=== PATIENT | female | born 1980 | race Caucasian/White ===

== ENCOUNTER 2021-09-07 10:51 | Emergency (ER) | payer OTHER, SELFPAY ==
[2021-09-07 11:05] VITALS: BP 125/86; PULSE 112; RESP 18; TEMP 37.1; O2SAT 99
--- NOTE | 2021-09-07 11:06 | ED.GENADULT ---
HPI - General Adult General Chief complaint: Upper Respiratory Infection Stated complaint: Sore Throat Source: patient Mode of arrival: ambulatory Limitations: no limitations History of Present Illness HPI narrative: Patient is a 41-year-old female who presents to the [facility] via POV for evaluation of a sore throat that began approximately 2 days ago. She is concerned she has strep throat prompting today's visit. She also reports fever with a maximum temperature of 100.7. Additionally, she reports a stomach bug tues and wed that has since resolved. She is taking Tums and Tylenol for symptoms. She also reports postnasal drip, erythema, and tonsillar swelling. Denies known exposure to sick contacts. Related Data Allergies Allergy/AdvReac Type Severity Reaction Status Date / Time No Known Allergies Allergy Verified 09/07/21 10:57 Review of Systems Review of Systems: Denies sweats, chills, change in appetite, poor p.o. intake, ear pain, sinus pain, drooling, difficulty swallowing, voice changes, chest pain, shortness of breath, heart palpitations PMFSH Comments I have reviewed and agree with the patient's past medical, surgical, social, and family hx as documented by the RN. There is no relevant family history pertinent to the presenting complaint. Exam Narrative: GENERAL: Well-appearing, well-nourished, and in no acute distress. HEAD: Normocephalic, atraumatic. No sinus tenderness or facial swelling appreciated. EYES: PERRLA and EOMI. No evidence of erythema, swelling, or drainage. ENT: Bilateral external ears and ear canals normal. Bilateral TMs are normal.No TM perforation. Nares clear, no rhinorrhea or epistaxis. Bilateral turbinates without erythema/ swelling. Mucous membranes moist and pink. Uvula is midline without erythema and swelling. Marked erythema, moderate swelling, and moderate exudate noted to bilateral tonsils. No evidence of peritonsillar abscess, tenting, or drooling. Breath odor and voice normal. NECK: Supple. No nuchal rigidity appreciated. Bilateral submandibular lymphadenopathy appreciated. CHEST: Bilateral lung bell are clear to auscultation. No respiratory distress. No evidence of cough or pleuritic cp upon examination. HEART: Tachycardia with a rate of 112. Regular rhythm. No murmur, gallop, or rub heard. EXTREMITIES: Normal range of motion. No edema. SKIN: Warm, dry, no rash. NEURO: No focal deficits. Alert and oriented x3. . Course Course Level of Care: Express Care Visit Vital Signs Vital signs: Reviewed Medical Decision Making Differential Diagnosis Differential Diagnosis: Allergic rhinitis, ABRS, acute viral sinusitis, strep pharyngitis, nasopharyngitis, bronchitis, pneumonia, AOM, otitis externa, viral URI, influenza, covid-19 Medical Records Medical records reviewed: Yes I reviewed the external patient's medical records. Lab Data Lab results reviewed: Yes I reviewed the patient's lab results. Lab results narrative: Rapid strep negative. Critical Care Time Critical Care Time Critical Care Time: No Discharge Plan Discharge Clinical Impression: Pharyngitis Qualifiers: Pharyngitis/tonsillitis etiology: unspecified etiology Qualified Code(s): J02.9 - Acute pharyngitis, unspecified Patient Disposition: Home, Self-Care Condition: Stable Instructions: Antibiotic Form, Strep Throat (ED) Additional Instructions: --See discharge instructions for detailed information. --You tested negative for strep a today although you will be prescribed an antibiotic since your exam findings and symptoms are consistent with this infection. --If you received prescription medication today be sure to take all prescription medication only as prescribed. --You may take [id number] Tylenol/ibuprofen as needed for pain, swelling, or fever control. Take only as directed per packaging label. --If you have been prescribed prednisone, DO NOT take [id number] anti-infl
== END 2021-09-07 11:30 | disposition home or self-care (01) ==
PROVIDERS: Emergency Provider Nurse Practitioner Family
DX: J02.9 Acute pharyngitis, unspecified (principal)
CPT/HCPCS: 87081; 87880; 99213; G0463

== ENCOUNTER 2021-10-02 15:53 | Emergency (ER) | payer OTHER, SELFPAY ==
--- NOTE | 2021-10-02 15:56 | ED.DENTAL ---
HPI - Dental/Oral General Chief complaint: Dental/Oral Stated complaint: Lt Tooth Pain Time Seen by Provider: 10/02/21 16:03 Mode of arrival: ambulatory Limitations: no limitations History of Present Illness HPI Narrative: 41-year-old female presents with concern for left upper dental pain. Reports 2-day history of pain. Reports she has had gums with her teeth for quite some time, reports the teeth on the upper left-hand side are ground down to the gum. Reports she has had trouble getting into a dentist because of her insurance. She denies any [id number] intervention. She denies difficulty swallowing, fever, headache. MD Complaint: tooth pain Related Data Home Medications Medication Instructions Recorded Confirmed levonorgestrel 20 mcg/24 hours (7 See Rx Instructions .Route .COMPLEX 09/07/21 10/02/21 yrs) 52 mg intrauterine device (Mirena) Allergies Allergy/AdvReac Type Severity Reaction Status Date / Time No Known Allergies Allergy Verified 10/02/21 16:04 Review of Systems Review of Systems: CONSTITUTIONAL: Denies malaise, chills, sweats, or fever. EYES: Denies visual changes ENT: Denies rhinorrhea, congestion, sinus pain, otalgia or sore throat. Reports left upper dental pain CARDIOVASCULAR: Denies chest pain, palpitations RESPIRATORY: Denies cough or dyspnea. SKIN: Denies rash or itching. MUSCULOSKELETAL: Denies myalgia. NEUROLOGIC: Denies numbness, weakness, or headache. All systems reviewed & are unremarkable except as noted in HPI and below PMFSH Comments At time of signature, agree with nursing past medical, surgical, social and family history. There is no relevant family history pertinent to the presenting complaint Exam Narrative: GENERAL: Well-appearing, well-nourished, and in no acute distress. HEAD: Normocephalic, atraumatic. EYES: PERRLA, sclera clear ENT: Nares clear, turbinates pink, no rhinorrhea or epistaxis. Mucous membranes moist. TM pearly baumann with sharp light reflex bilaterally; no tragal tenderness. Oropharynx without erythema or lesions. Tonsils not enlarged and without exudate. Missing teeth, broken teeth, caries, teeth 13, 14, 15, 16 are worn down to the gum. No periapical abscess noted NECK: Supple. No lymphadenopathy. CHEST: No respiratory distress. Speaks in full sentences. HEART: Regular rate and rhythm. SKIN: Warm, dry, no visible rash. NEURO: Alert and oriented x3. PSYCH: Normal mood and affect Course Course Emergency Course: Patient is aware of diagnosis, understands and agrees to treatment plan. Anticipatory guidance given. Patient agrees to follow-up as directed and is aware of reasons to seek care at the emergency department. Portions of this record may have been created with voice recognition software Level of Care: Express Care Visit Vital Signs Vital signs: Reviewed. MDM - Dental/Oral MDM Narrative Medical decision making narrative: Patients pain and complaint coupled with physical findings are consistant with dentalgia. There are no focal signs of space occupying lesions that are compromising to the airway; no dysphagia, odynophagia, dysphonia, or dyspnea. No uvular deviation or soft palate edema. Patient is non-toxic appearing. The floor of the mouth is soft with no signs of Marlon's Angina; no induration below mandible, no neck pain. Patient is without trismus or drooling and able to swallow secretions. Patient is felt appropriate for discharge home with dental follow up. Differential Diagnosis Differential diagnosis: Likely gingival abscess, dental caries, toothache, dental abscess, fracture of tooth and aphthous ulcer Critical Care Time Critical Care Time Critical Care Time: No Discharge Plan Discharge Clinical Impression: Toothache Patient Disposition: Home, Self-Care Condition: Stable Instructions: Toothache (ED) Additional Instructions: Take antibiotic as directed Avoid temperature extremes May apply heat or
[2021-10-02 16:00] VITALS: BP 133/79; PULSE 88; RESP 18; TEMP 36.5; O2SAT 100
== END 2021-10-02 16:15 | disposition home or self-care (01) ==
PROVIDERS: Emergency Provider Nurse Practitioner
DX: K08.89 Other specified disorders of teeth and supporting structures (principal); F17.200 Nicotine dependence, unspecified, uncomplicated
CPT/HCPCS: 99213; G0463

== ENCOUNTER 2021-12-09 10:09 | Emergency (ER) | payer OTHER, SELFPAY ==
[2021-12-09 10:22] VITALS: BP 130/84; PULSE 99; RESP 18; TEMP 36.8; O2SAT 99
--- NOTE | 2021-12-09 10:30 | ED.GENADULT ---
HPI - General Adult General Chief complaint: Dental/Oral Stated complaint: toothache History of Present Illness HPI narrative: Patient is a 41-year-old female who presents to the [facility] via POV for evaluation of upper left dental pain that has been present for approximately 2 days. Additionally, she reports pain is constant and achy in nature. She also reports swelling, warmth, and redness. She states she has poor dentition. Prescription ibuprofen provides moderate relief. Last dental infection was 3 months ago. She was prescribed Augmentin and ibuprofen 800 at that time. She is waiting to call a dentist after her insurance becomes effective in 1.5 months. Related Data Home Medications Medication Instructions Recorded Confirmed levonorgestrel 20 mcg/24 hours (7 See Rx Instructions .Route .COMPLEX 09/07/21 12/09/21 yrs) 52 mg intrauterine device (Mirena) Allergies Allergy/AdvReac Type Severity Reaction Status Date / Time No Known Allergies Allergy Verified 12/09/21 10:30 Review of Systems Review of Systems: Denies abscess and drug use. Pertinent negatives fever, chills, sweats, poor p.o. intake, change in appetite, recent weight loss, malaise, headache, dizziness, skin color changes, lymphadenopathy, ear pain/drainage, nasal drainage/congestion, hearing loss, tinnitus, vertigo, facial swelling,swollen/tender gums, inability to swallow, drooling, sore throat, nausea, vomiting, sob, chest pain, and heart palpitations/murmurs. PMFSH Comments I have reviewed and agree with the patient's past medical, surgical, social, and family hx as documented by the RN. There is no relevant family history pertinent to the presenting complaint. Exam Narrative: GENERAL: Well-appearing, well-nourished, and in no acute distress. HEAD: Normocephalic, atraumatic. No sinus tenderness or facial swelling. NECK: Supple. No lymphadenopathy or nuchal rigidity. CHEST: Lung sounds are clear to auscultation in bilateral lung bell. No respiratory distress. No evidence of cough upon examination. HEART: Regular rate and rhythm. No murmurs, gallops, or rubs heard. Normal peripheral pulses. Eyes: PERRLA and EOMI. Bilateral conjunctiva with erythema. Normal sclera, eyelids, and eyelashes. Periorbital areas without swelling, erythema, and warmth. No drainage appreciated. ENT: Ears: TMs pearly pina. No bulging, erythema, or fluid appreciated. External auditory canals are Nose: Nares clear, no rhinorrhea or epistaxis. No swelling or erythema. Throat/Mouth: No evidence of swelling, erythema, exudate, peritonsillar mass, lesions, ulcers or drooling. Uvula is midline and without erythema and swelling. Mucous membranes moist. Voice and breath odor normal. Moderate swelling and erythema to gums surrounding tooth #14-16. Moderate diffuse dental carries and fractured teeth. EXTREMITIES: Normal range of motion. No edema. SKIN: Warm, dry, no rash. No skin color changes. Excellent turgor. NEURO: No focal deficits. Alert and oriented x3. Course Course Level of Care: Express Care Visit Vital Signs Vital signs: Vital Signs Temperature 98.2 F 12/09/21 10:22 Pulse Rate 99 12/09/21 10:22 Respiratory Rate 18 12/09/21 10:22 Blood Pressure 130/84 12/09/21 10:22 Pulse Oximetry 99 12/09/21 10:22 Oxygen Delivery Room Air 12/09/21 10:22 Temperature 98.2 F 12/09/21 10:22 Pulse Rate 99 12/09/21 10:22 Respiratory Rate 18 12/09/21 10:22 Blood Pressure 130/84 12/09/21 10:22 Pulse Oximetry 99 12/09/21 10:22 Oxygen Delivery Room Air 12/09/21 10:22 Medical Decision Making Differential Diagnosis Differential Diagnosis: Dental caries, dental abscess, gingivitis Vital Signs Vital Signs: Vital Signs Temperature 98.2 F 12/09/21 10:22 Pulse Rate 99 12/09/21 10:22 Respiratory Rate 18 12/09/21 10:22 Blood Pressure 130/84 12/09/21 10:22 Pulse Oximetry 99 12/09/21 10:22 Oxygen Delivery Room A
== END 2021-12-09 10:43 | disposition home or self-care (01) ==
PROVIDERS: Emergency Provider Nurse Practitioner Family
DX: K04.7 Periapical abscess without sinus (principal); R12 Heartburn; F17.200 Nicotine dependence, unspecified, uncomplicated
CPT/HCPCS: 99213; G0463

== ENCOUNTER 2022-01-12 10:21 | Emergency (ER) | payer OTHER, SELFPAY ==
[2022-01-12 10:38] VITALS: BP 128/79; PULSE 95; RESP 18; TEMP 36.6; O2SAT 100
--- NOTE | 2022-01-12 11:01 | ED.DENTAL ---
HPI - Dental/Oral General Chief complaint: Dental/Oral Stated complaint: Lt Facial Swelling Time Seen by Provider: 01/12/22 11:02 History of Present Illness HPI Narrative: Luz Elena Gerber is a 41 yo female is here with no PMH [facility] dental pain and swelling. Her face is gotten progressively more swollen the last day or 2 and she has a dental appointment on 920 but the pressure is increased as well as a swelling in her mouth she tried to contact her PCP who could not get her in until Friday Related Data Home Medications Medication Instructions Recorded Confirmed levonorgestrel 20 mcg/24 hours (7 See Rx Instructions .Route .COMPLEX 09/07/21 01/12/22 yrs) 52 mg intrauterine device (Mirena) Allergies Allergy/AdvReac Type Severity Reaction Status Date / Time No Known Allergies Allergy Verified 01/12/22 11:01 Review of Systems Review of Systems: CONSTITUTIONAL: Denies fever, chills, sweats. EYES: Denies visual changes, redness, discharge. ENT: Denies rhinorrhea, congestion, sore throat, otalgia. She has an abscess in her left upper mouth that is causing swelling of her cheek CARDIOVASCULAR: Denies chest pain, palpitations, edema. RESPIRATORY: Denies dyspnea, wheezing, cough GASTROINTESTINAL: Denies abdominal pain, nausea, vomiting, diarrhea. GENITOURINARY: Denies dysuria, hematuria, abnormal discharge SKIN: Denies rash or itching. NEUROLOGIC: Denies numbness, or focal weakness. PSYCHIATRIC: Denies anxiety or depression. [facility] Social History Social History (Updated 01/12/22 @ 11:11 by Justine Pace CNP) Smoking packs per day: 0.5 Smoking cigarettes per day: 10.0 Smoking status: Current every day smoker Tobacco type: cigarettes Alcohol intake: current Comments At time of signature, I agree with nursing past medical, surgical, social and family history. There is no relevant family history pertinent to the presenting complaint. Exam Narrative: GENERAL: This is a well-nourished, well-developed patient, in mild distress. HEAD: normocephalic, atraumatic. EYES: . Sclera clear/white. Vision is grossly intact. EARS: External ears normal, auditory canals clear and without drainage, TMs normal without perforation. Hearing grossly intact. NOSE: External nose normal without nasal discharge, nares without redness, no rhinorrhea. THROAT: Mucous membranes moist, swelling to left cheek she has 2 teeth that are cracked and 1 area of gum that is red and swollen with a bump on the upper gum, tender NECK: Neck supple, non-tender CARDIOVASCULAR: Regular rate and rhythm without murmurs, gallops, or rubs. RESPIRATORY: Clear to auscultation. Breath sounds equal bilaterally. No wheezes, rales, or rhonchi. GASTROINTESTINAL: Not done SKIN: warm, intact with no suspicious lesions or rash, good texture and turgor. NEURO: awake, alert, and oriented to person, place and time. There were no obvious focal neurologic abnormalities. Steady gait EXTREMITIES: Normal range of motion. BACK: Nontender without deformity Course Course Emergency Course: Patient treated for abscess to tooth has a dental appointment on 01/22 Started on amoxicillin, prednisone and ibuprofen 800 mg Level of Care: Express Care Visit Vital Signs Vital signs: Vital Signs Temperature 97.9 F 01/12/22 10:38 Pulse Rate 95 01/12/22 10:38 Respiratory Rate 18 01/12/22 10:38 Blood Pressure 128/79 01/12/22 10:38 Pulse Oximetry 100 01/12/22 10:38 Oxygen Delivery Room Air 01/12/22 10:38 Temperature 97.9 F 01/12/22 10:38 Pulse Rate 95 01/12/22 10:38 Respiratory Rate 18 01/12/22 10:38 Blood Pressure 128/79 01/12/22 10:38 Pulse Oximetry 100 01/12/22 10:38 Oxygen Delivery Room Air 01/12/22 10:38 MDM - Dental/Oral Differential Diagnosis Differential diagnosis: Likely gingival abscess, dental caries, toothache, dental abscess, fracture of tooth and other Critical Care Time Critica
== END 2022-01-12 11:20 | disposition home or self-care (01) ==
PROVIDERS: Emergency Provider Nurse Practitioner; PCP Nurse Practitioner Family
DX: K04.7 Periapical abscess without sinus (principal); F17.210 Nicotine dependence, cigarettes, uncomplicated
CPT/HCPCS: 99213; G0463

== ENCOUNTER 2024-05-08 10:26 | Emergency (ER) | payer SELFPAY ==
[2024-05-08 10:45] VITALS: BP 137/85; PULSE 94; RESP 18; TEMP 36.4; O2SAT 99
--- NOTE | 2024-05-08 10:51 | ED_ITS ---
HPI - URI/Sore Throat General Chief Complaint: Upper Respiratory Infection Stated Complaint: Cough Time Seen by Provider: 05/08/24 10:55 Source: patient Mode of arrival: ambulatory Limitations: no limitations History of Present Illness HPI Narrative: Luz Elena is a 44-year-old female patient presenting to the clinic today with complaints of a 2 day history of a productive cough. She reports she is bringing up some like color yellow and clear phlegm. She is a current smoker. No history of COPD or asthma. Denies any shortness of breath or chest pain but states last night she coughs a lot and felt a rattling in her chest. Denies any fevers, chills, or body aches. MD elicited complaint: cough and other Related Data Home Medications ?Medication ?Instructions ?Recorded ?Confirmed ?Last Taken ?Type levonorgestrel (Mirena) See Rx Instructions .Route .COMPLEX 09/07/21 08/20/23 Unknown History Allergies Allergy/AdvReac Type Severity Reaction Status Date / Time No Known Allergies Allergy Verified 05/08/24 10:55 Review of Systems Review of Systems: Pertinent positives per HPI. Patient denies any fever, chills, rash, headache, visual changes, dizziness, shortness of breath, chest pain, palpitations, nausea, vomiting, diarrhea, constipation, abdominal pain, or any urinary issues. [facility] Past Medical History Medical History Obese Tobacco use Surgical History Surgical History (Updated 08/20/23 @ 14:32 by Roseann Sellers CMA) No history of previous surgery Family History Family History (Updated 08/20/23 @ 14:33 by Roseann Sellers CMA) Father Heart disease Social History Social History (Updated 08/20/23 @ 14:33 by Roseann Sellers CMA) Smoking packs per day: 0.5 Smoking cigarettes per day: 10.0 Smoking status: Current every day smoker Tobacco type: cigarettes Alcohol intake: current Substance use: never Do You Feel Safe in your Home?: Yes Lack of Transportation: No Lack of Food: Never True Current Housing: I Have Housing Concerned About Future Housing: No Difficulty Paying Gas/Electric Bills: No Difficulty Paying for Meds: No Currently Unemployed: No Education: Don't Know Difficulty w/ Childcare or Family Care: No Living arrangements: alone Occupation/Education: occupation 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 There is no relevant family history pertinent to the patient complaint. Exam Narrative: General: Well-developed, obese, in no apparent distress Head: Normocephalic, atraumatic Eyes: Pupils equally round and reactive to light bilaterally, EOM intact, sclera and conjunctive clear, no discharge, lids normal Ears: TMs intact and clear, ear canals clear, no drainage, grossly hearing normal. Nose: Nares patent, clear nasal discharge, no inflammation, no sinus tenderness. Mouth: Oral pharynx without lesions or masses, good dentition, MMM. Neck: Supple, trachea midline, no enlargement of anterior or posterior cervical nodes, no thyroid masses or goiter palpable. Cardio: Regular rate and rhythm, s1 and s2 normal, no murmur appreciated. Resp: Expiratory wheezing, no rhonchi, rales, or rubs Course Course Emergency Course: Portions of this record may have been created with voice recognition software. Level of Care: Express Care Visit Vital Signs Vital signs: Vital Signs Temperature 36.4 C 05/08/24 10:45 Pulse Rate 94 05/08/24 10:45 Respiratory Rate 18 05/08/24 10:45 Blood Pressure 137/85 05/08/24 10:45 Pulse Oximetry 99 05/08/24 10:45 Oxygen Delivery Room Air 05/08/24 10:45 Temperature 36.4 C 05/08/24 10:45 Pulse Rate 94 05/08/24 10:45 Respiratory Rate 18 05/08/24 10:45 Blood Pressure 137/85 05/08/24 10:45 Pulse Oximetry 99 05/08/24 10:45 Oxygen Delivery Room Air 05/08/24 10:45 Vital signs reviewed MDM - URI/Sore Throat MDM Narrative Medical decision making narrative: At the time of visit patient is resting comfortably on the exam table. Patient appears to be nontoxic. Plan: I suspect patient has acute bronchitis. Prescription for prednisone and albuterol inhaler was sent to the pharmacy. Supportive measures were discussed with the patient and they voiced understanding discharge instructions and agrees to treatment plan. Return precautions reviewed Differential Diagnosis Differential diagnosis: Likely upper respiratory infection, otitis media, sinusitis, viral infection, bronchitis, influenza, pharyngitis and other (COVID) Discharge Plan Discharge Clinical Impression: Bronchitis Patient Disposition: Home, Self-Care Condition: Stable Instructions: Antibiotic Form, Acute Bronchitis (ED) Additional Instructions: Take prescription medications only as prescribed-albuterol inhaler and prednisone Increase fluids and stay well hydrated Tylenol/motrin for pain/fever Flonase and OTC antihistamines as directed Vicks vapor rub to open sinuses Sinus rinses for congestion Cepacol spray, cough drops, throat lozenges, warm tea with honey/lemon, gargle salt water to soothe throat BRAT diet for diarrhea Clear liquids x 24 hours then advance as tolerated for nausea/vomiting Go to the ED if you develop a worsening in your condition- high fever not controlled by Tylenol or Motrin, dehydration, weakness, lethargy, shortness of breath, or chest pain. Follow up with your PCP in 3-5 days if symptoms persist. Patient Language: Jordanian Prescriptions: New prednisone 20 mg tablet 40 mg PO DAILY 5 Days Qty: 10 0RF albuterol sulfate 90 mcg/actuation HFA aerosol inhaler 2 puff inhalation Q4-6H PRN (Reason: shortness of breath or wheezing) 30 Days Qty: 8.5 0RF No Action Mirena 20 mcg/24 hours (7 yrs) 52 mg Intrauterine Device See Rx Instructions .ROUTE .COMPLEX Rx Instructions: 20 mcg intrauterinely Follow-up/Referrals: Neris Robert APRN [Primary Care Provider] - Time of Disposition: 10:59 Quality NIHSS Nursing Documentation ED NIHSS nursing documentation: reviewed/agree
--- OUTSIDE RECORDS SUMMARY | 2024-05-15 14:22 | XMS_ITS | Encounter Summary ---
Author Organization [facility] Address [address] [place] [address]. [place] [address] [place] [address] Care Team Providers Care Fabric Normalizer Name Role Phone Unavailable Primary Care Provider Unavailabl e Encounter Details Date Type Department Care Team (Late st Contact Info) Description 12/24/2016 Abstract [facility] Family & Internal Medicine [facility] [address] [place] [address] Altagracia Escalante NP Social History Tobacco Use Types Packs/Day Years Used Date Smoking Tobacco: Never Assessed Comments Unknown Sex and Gender Information Value Date Recorded Sex Assigned at Not on file Legal Sex Female 7:05 PM CDT Gender Identity Not on file Sexual Orientation Not on file documented as of this encounter Last Filed Vital Signs Vital Sign Reading Time Taken Comments Blood Pressure 126/64 12/24/2016 2:45 PM CDT Pulse 95 12/24/2016 2:45 PM CDT Temperature - - Respiratory Rate - - Oxygen Saturation - - Inhaled Oxygen Concentration - - Weight 77.7 kg (171 lb 4 oz) 12/24/2016 2:45 PM CDT Height 162.6 cm (5' 4 ) 12/24/2016 2:45 PM CDT Body Mass Index 29.39 12/24/2016 2:45 PM CDT documented in this encounter Progress Notes * Altagracia Escalante NP - 12/24/2016 2:40 PM CDT Reason For Visit Acute Visit Chief Complaint Acute visit for note to be off work today, had food poisoning yesterday after eating [employer](mother also ate same thing and was sick(diarrhea, puked, and stomach cramping), started feeling better late morning; and now her work is needing a note to be off work just today. Review of Systems Eyes, ENT, Cardiovascular, Respiratory, Genitourinary, Musculoskeletal, Integumentary, Neurological, Psychiatric, Endocrine and Hematologic review of systems normal except as noted. Constitutional: feeling poorly. Gastrointestinal: abdominal pain and diarrhea. Active Problems 1. Heartburn (787.1) (R12) 2. Normal routine physical examination (V70.0) (Z00.00) 3. Screening for tuberculosis (V74.1) (Z11.1) Surgical History 1. Denied: History of Surgery Family History Father 1. Family history of diabetes mellitus (V18.0) (Z83.3) Social History ?? Denied: History of Alcohol use ?? Current every day smoker (305.1) (F17.200) ?? Daily caffeine consumption, 2-3 servings a day ?? Single Immunizations PPD --- Series1: [id number] Current Meds 1. RaNITidine HCl - 150 MG Oral Capsule; Therapy: 24Dec2016 to Recorded 2. Hydrocodone-Acetaminophen 7.5-325 MG Oral Tablet; TK 1 T PO Q 6 H P; Therapy: 30Jul2016 to Recorded 3. Ketorolac Tromethamine 10 MG Oral Tablet; TK ONE T PO EVERY SIX HOURS PRN FOR MODERATE PAIN; Therapy: 05Jul2016 to Recorded 4. Ondansetron 4 MG Oral Tablet Disintegrating; DIS ONE T ON THE TONGUE Q 8 H PRN NV; Therapy: 30Jul2016 to Recorded 5. Tamsulosin HCl - 0.4 MG Oral Capsule; TK ONE C PO QD 30 MINUTES AFTER SAME MEAL EACH DAY; Therapy: 30Jul2016 to Recorded Allergies 1. No Known Drug Allergies Vitals Recorded: 24Dec2016 02:45PM Heart Rate 95 Respiration 18 Systolic 126 Diastolic 64 O2 Saturation 98 Height 5 ft 4 in Weight 171 lb 4 oz BMI Calculated 29.4 BSA Calculated 1.83 Physical Exam Constitutional General appearance: Abnormal. acutely ill and appears tired, but well developed, well nourished andhealthy appearing. Eyes Conjunctiva and lids: No swelling, erythema or discharge. Ears, Nose, Mouth, and Throat External inspection of ears and nose: Normal. Otoscopic examination: Tympanic membranes translucent with normal light reflex. Canals patent without erythema. Oropharynx: Normal with no erythema, edema, exudate or lesions. Pulmonary Respiratory effort: No increased work of breathing or signs of respiratory distress. Auscultation of lungs: Clear to auscultation. Cardiovascular Palpation of heart: Normal PMI, no thrills. Auscultation of heart: Normal rate and rhythm, normal S1 and S2, without murmurs. Examination of extremities for edema and/or varicosities: Normal. Abdomen Abdomen: Abnormal. The abdomen was flat. Bowel sounds were normal. The abdomen was soft. no masses palpated. The abdomen was normal to percussion. no CVA tenderness Liver and spleen: No hepatomegaly or splenomegaly. Lymphatic Palpation of lymph nodes in neck: No lymphadenopathy. Musculoskeletal Gait and station: Normal. Digits and nails: Normal without clubbing or cyanosis. Inspection/palpation of joints, bones, and muscles: Normal. Skin Skin and subcutaneous tissue: Normal without rashes or lesions. Neurologic Cranial nerves: Cranial nerves 2-12 intact. Reflexes: 2+ and symmetric. Sensation: No sensory loss. Psychiatric Orientation to person, place, and time: Normal. Mood and affect: Normal. Assessment 1. Acute diarrhea (787.91) (R19.7) 2. Nausea and vomiting (787.01) (R11.2) Plan Pt has improved symptoms but needed return to work note May return tomorrow. Feeling better and acute diarrhea and nausea and vomiting. Signatures Electronically signed by : Altagracia Escalante NP; Dec 24 2016 3:19PM INDIGO VAT TENDER CLOTH (Author) * Altagracia Escalante NP - 12/24/2016 2:40 PM CDT To whom it may concern, Please excuse Luz Elena from work on 12/24/16, she was sick and seen in our office today. If you have any questions please feel free to call our office. Thank you, Altagracia Escalante CLINICAL NURSE OCCUPATIONAL MEDICINE Electronically signed by:Rosangela Denson Dec 24 2016 3:17PM INDIGO VAT TENDER CLOTH documented in this encounter Plan of Treatment Not on file documented as of this encounter Visit Diagnoses Not on filedocumented in this encounter
--- OUTSIDE RECORDS SUMMARY | 2024-05-15 14:22 | XMS_ITS | Encounter Summary ---
Author Organization [facility] Address [address] [place] [address]. [place] [address] [place] [address] Care Team Providers Care Exploration Manager Name Role Phone Unavailable Primary Care Provider Unavailabl e Encounter Details Date Type Department Care Team (Late st Contact Info) Description 02/09/2016 Abstract [facility] Family & Internal Medicine [facility] [address] [place] [address] Parvez Herrera NP Social History Tobacco Use Types Packs/Day Years Used Date Smoking Tobacco: Never Assessed Comments Unknown Sex and Gender Information Value Date Recorded Sex Assigned at Not on file Legal Sex Female 7:05 PM CDT Gender Identity Not on file Sexual Orientation Not on file documented as of this encounter Last Filed Vital Signs Vital Sign Reading Time Taken Comments Blood Pressure 128/60 02/09/2016 8:02 AM CDT Pulse 97 02/09/2016 8:02 AM CDT Temperature - - Respiratory Rate - - Oxygen Saturation - - Inhaled Oxygen Concentration - - Weight 79.8 kg (176 lb) 02/09/2016 8:02 AM CDT Height 162.6 cm (5' 4 ) 02/09/2016 8:02 AM CDT Body Mass Index 30.21 02/09/2016 8:02 AM CDT documented in this encounter Progress Notes * Parvez Herrera NP - 02/09/2016 8:00 AM CDT Reason For Visit Health Neighborhood Planner Complaint 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 General Health: The patient's health since the last visit is described as good. She does not have regular dental visits. She denies vision problems. She denies hearing loss. Immunizations status: up to date. Lifestyle:. She consumes a diverse and healthy diet. She has weight concerns. She does not exerciseregularly. She uses tobacco. She denies alcohol use. Reproductive health: the patient is premenopausal. 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 does not have an immunization record with her but states she is UTD. does not usually get a flu shot. last tetanus 4 years ago with injury so doubt has pertussis coverage. Review of Systems Constitutional: negative. Eyes: negative. ENT: negative. Cardiovascular: negative. Respiratory: negative. Gastrointestinal: negative. Genitourinary: negative. Musculoskeletal: negative. Integumentary negative. Psychiatric: negative. Neurological Negative. Surgical History 1. Denied: History of Surgery Family History 1. Family history of diabetes mellitus (V18.0) (Z83.3) Social History ?? Denied: History of Alcohol use ?? Current every day smoker (305.1) (F17.200) ?? Daily caffeine consumption, 2-3 servings a day ?? Single Current Meds 1. No Reported Medications Recorded 2. PriLOSEC OTC 20 MG Oral Tablet Delayed Release; TAKE 1 TABLET DAILY; Therapy: 09Feb2016 to Recorded Allergies 1. No Known Drug Allergies Vitals Signs [Data Includes: Current Encounter] Heart Rate: 97 Blood Pressure: 60 mm Hg O2 Saturation: 98 Height: 5 ft 4 in Weight: 176 lb BMI Calculated: 30.21 kg/m2 BSA Calculated: 1.85 m2 Blood Pressure: 128 mm Hg Physical Exam Constitutional General appearance: No acute distress, well appearing and well nourished. patient was observed to be mildly obese, but well developed and well nourished. Eyes Conjunctiva and lids: No swelling, erythema or discharge. Pupils and irises: Equal, round, reactive to light. Ears, Nose, Mouth, and Throat External inspection of ears and nose: Normal. Otoscopic examination: Tympanic membranes translucent with normal light reflex. Canals patent without erythema. Nasal mucosa, septum, and turbinates: Normal without edema or erythema. Lips, teeth, and gums: Abnormal. Oropharynx: Normal with no erythema, edema, exudate or lesions. Neck Neck: Supple, symmetric, trachea midline, no masses. Thyroid: Normal, no thyromegaly. Pulmonary Respiratory effort: No increased work of breathing or signs of respiratory distress. Auscultation of lungs: Clear to auscultation. Cardiovascular Auscultation of heart: Normal rate and rhythm, normal S1 and S2, no murmurs. Pedal pulses: 2+ bilaterally. Examination of extremities for edema and/or varicosities: Normal. Abdomen Abdomen: Non-tender, no masses. Examination for hernias: No hernia appreciated. Lymphatic Palpation of lymph nodes in neck: No lymphadenopathy. Musculoskeletal Gait and station: Normal. Digits and nails: Normal without clubbing or cyanosis. Joints, bones, and muscles: Normal. Range of motion: Normal. Stability: Normal. Muscle strength/tone: Normal. Skin Skin and subcutaneous tissue: Normal without rashes or lesions. Neurologic Cranial nerves: Cranial nerves II-XII intact. Psychiatric Recent and remote memory: Intact. Mood and affect: Normal. Assessment 1. Normal routine physical examination (V70.0) (Z00.00) 2. Screening for tuberculosis (V74.1) (Z11.1)1 1 Amended By: Parvez Herrera; Feb 09 2016 8:43 AM LAUNDRY HOUSEKEEPER Plan Normal routine physical examination 1. Always use a seat belt and shoulder strap when riding or driving a motor vehicle.; Status:Complete; Done: 09Feb2016 2. Begin or continue regular aerobic exercise. Gradually work up to at least 3 sessions of 30 minutes of exercise a week.; Status:Complete; Done: 09Feb2016 3. Eat a normal well-balanced diet.; Status:Complete; Done: 09Feb2016 4. Limit your use of alcohol to 2 drinks or cans of beer a day.; Status:Complete; Done: 09Feb2016 5. Schedule an appointment in 48-72 hours to have your TB (tuberculin) skin test interpreted by a trained healthcare provider.; Status:Complete; Done: 09Feb2016 6. Some eating tips that can help you lose weight.; Status:Complete; Done: 09Feb2016 7. We recommend routine visits to a dentist.; Status:Complete; Done: 09Feb2016 8. We recommend that you bring your body mass index down to 25.; Status:Complete; Done: 09Feb2016 Screening for tuberculosis 9. *TB Skin Test Reading In Office; Status:Hold For - Specimen/Data Collection; Requested for:[id number]; 10. Administered: PPD discussed Tdap and influenza vaccines which are declined today come back in Friday for TB test to be read good handwashing to prevent spread of germs f/u prn Signatures Electronically signed by : Parvez Herrera NP; Feb 09 2016 8:42AM LAUNDRY HOUSEKEEPER (Author) Electronically signed by : Parvez Herrera NP; Feb 09 2016 8:44AM LAUNDRY HOUSEKEEPER (Author) documented in this encounter Plan of Treatment Not on file documented as of this encounter Procedures Procedure Name Priority Date/Time Associated Diagnosis Comments TB INTRADERMAL TEST(LAB PERFORMED) Routine 02/12/2016 8:36 AM CDT documented in this encounter Results * TB INTRADERMAL TEST(LAB PERFORMED) (02/12/2016 8:36 AM CDT) TB SKIN TST 2ND STEP Negative [facility] TO EPIC CONVERSION COMMENT 0.0 mm [facility] T O EPIC CONVERSION TB SKIN TST 2ND STEP None [facility] TO EPIC CONVERSION COMMENT maw [facility] T O EPIC CONVERSION 02/12/2016 8:36 AM CDT 02/12/2016 8:36 AM CDT Narrative [facility] TO EPIC CONVERSION - 02/12/2016 8:36 AM CDT Result Communication: No patient communication needed at this time us Parvez Herrera NP MICROBIOLOGY - GENERAL ORDERAB LES Final Result [facility] TO EPIC CONVERSION documented in this encounter Visit Diagnoses Not on filedocumented in this encounter
--- OUTSIDE RECORDS SUMMARY | 2024-05-15 14:22 | XMS_ITS | Encounter Summary ---
Author Organization [facility] Address [address] [place] [address]. [place] [address] [place] [address] Care Team Providers Care Store Merchandiser Name Role Phone Unavailable Primary Care Provider Unavailabl e Encounter Details Date Type Department Care Team (Late st Contact Info) Description 04/09/2018 Abstract [facility] [address] [place] [address] Liliana Conde, FABIOLA [address] [place] [address] Social History Tobacco Use Types Packs/Day Years Used Date Smoking Tobacco: Never Assessed Comments Unknown Sex and Gender Information Value Date Recorded Sex Assigned at Not on file Legal Sex Female 7:05 PM CDT Gender Identity Not on file Sexual Orientation Not on file documented as of this encounter Plan of Treatment Not on file documented as of this encounter Visit Diagnoses Diagnosis Strain of muscle, fascia and tendon at neck level, initial encounter documented in this encounter
--- OUTSIDE RECORDS SUMMARY | 2024-05-15 14:22 | XMS_ITS | Encounter Summary ---
Author Organization [facility] Address [address] [place] [address]. [place] [address] [place] [address] Care Team Providers Care Safe And Vault Mechanic Name Role Phone Unavailable Primary Care Provider Unavailabl e Reason for Visit * Reason Comments Report (SCAN) MOTOR VEHICLE CRASH Encounter Details Date Type Department Care Team (Late st Contact Info) Description 04/09/2018 Scan HEALTH INFO [facility] Scanned, Documents Report (SCAN) (MOTOR VEHICLE CRASH) Social History Tobacco Use Types Packs/Day Years [...]
--- OUTSIDE RECORDS SUMMARY | 2024-05-15 14:22 | XMS_ITS | Encounter Summary ---
Author Organization [facility] Address [address] [place] [address]. [place] [address] [place] [address] Care Team Providers Care Batterboard Setter Name Role Phone Unavailable Primary Care Provider Unavailabl e Encounter Details Date Type Department Care Team (Late st Contact Info) Description 07/05/2016 Abstract [facility] Emergency Room [address] [place] [address] Social History Tobacco Use Types Packs/Day Years Used Date Smoking Tobacco: Never Assessed Comments Unknown Sex and Gender Information Value Date Recorded Sex Assigned at Not on file Legal Sex Female 7:05 PM CDT Gender Identity Not on file Sexual Orientation Not on file documented as of this encounter Plan of Treatment Not on file documented as of this encounter Visit Diagnoses Diagnosis Hydronephrosis with renal and ureteral calculus obstruction Hydronephrosis documented in this encounter
--- OUTSIDE RECORDS SUMMARY | 2024-05-15 14:22 | XMS_ITS | Encounter Summary ---
Author Organization [facility] Address [address] [place] [address]. [place] [address] [place] [address] Care Team Providers Care Card Scraper Name Role Phone Unavailable Primary Care Provider Unavailabl e Encounter Details Date Type Department Care Team (Latest Contact Info) Description 12/31/2016 Abstract [facility] Medical [facility] Social History Tobacco Use Types Packs/Day Years [...]
--- OUTSIDE RECORDS SUMMARY | 2024-05-15 14:22 | XMS_ITS | Encounter Summary ---
Author Organization [facility] Address [address] [place] [address]. [place] [address] [place] [address] Care Team Providers Care Algology Teacher Name Role Phone None, Provider Primary Care Provider Unavaila ble Reason for Visit * Reason Comments Back Pain Encounter Details Date Type Department Care Team (Late st Contact Info) Description 01/06/2019 10:26 AM CDT - 01/06/2019 11:50 AM CDT Emergency [facility] Emergency Room [id number] [place] [address] [id number] Luz Yao, [facility] [address] [address] Back Pain Discharge Disposition: Home or Self Care (Routine Discharge) Social History Tobacco Use Types Packs/Day Years Used Date Smoking Tobacco: Every Day Smokeless Tobacco: Never Alcohol Use Standard Drinks/Week Comments No 0 (1 standard drink = 0.6 oz pur e alcohol) AUDIT-C Answer Date Recorded Frequency of Alcohol Consumption Never 01/06/2019 Average Number of Drinks Not on file 019 Frequency of Binge Drinking Not on file 08/2018 Comments No Sex and Gender Information Value Date Recorded Sex Assigned at Not on file Legal Sex Female 7:05 PM CDT Gender Identity Not on file Sexual Orientation Not on file documented as of this encounter Last Filed Vital Signs Vital Sign Reading Time Taken Comments Blood Pressure 139/90 01/06/2019 10:30 AM CDT Pulse 84 01/06/2019 10:30 AM CDT Temperature 36.4 ??C (97.5 ??F) 01/06/2019 10:30 AM C DT Respiratory Rate 18 01/06/2019 10:30 AM CDT Oxygen Saturation 100% 01/06/2019 10:30 AM CDT Inhaled Oxygen Concentration - - Weight 93 kg (205 lb 0.4 oz) 01/06/2019 10:30 AM CDT Height 157.5 cm (5' 2 ) 01/06/2019 10:30 AM CDT Body Mass Index 37.5 01/06/2019 10:30 AM CDT documented in this encounter Discharge Instructions * Discharge Instructions* MAY Crawford - 01/06/2019 11:42 AM CDT Take medications as directed and follow discharge instructions carefully. Follow-up with primary care physician in 3 days without fail. Return for any worsening of symptoms. * Attachments The following attachments cannot be sent through Care Everywhere. * Low Back Pain Discharge Instructions ([place]) * Muscle Strain Discharge Instructions ([place]) documented in this encounter Medications at Time of Discharge meloxicam 7.5 MG tablet Take 1 tablet (7.5 mg total) by mouth daily. 30 tablet 01/06/2019 cyclobenzaprine 10 MG tablet Take 1 tablet (10 mg total) by mouth 3 (three) times daily as needed for Muscle Spasms. 30 tablet 01/06/2019 01/16/2019 documented as of this encounter ED Notes * MAY Crawford - 01/06/2019 11:50 AM CDT Images from the original note were not included. Chief Complaint Chief Complaint Patient presents with ??? Back Pain History of Present Illness 38-year-old female presents with left lower lumbar back pain. Patient states she was bowling last night did not have any pain until she got home from bowling. Patient states pain is worse with position changes had some nausea. Patient denied any injury. Patient states she also has a history of kidney stones states this does not feel the same. Patient denies any urinary symptoms. Patient has no lower extremity paresthesia or loss of bowel or bladder control patient is ambulatory weightbearing upon arrival to emergency department Medical History ALLERGIES: No Known Allergies MEDICATIONS: Prior to Admission medications Medication Sig Start Date End Date Taking? Authorizing Provider cyclobenzaprine 10 MG tablet Take 1 tablet (10 mg total) by mouth 3 (three) times daily as needed for Muscle Spasms. 01/06/19 01/16/19 Yes MAY Crawford meloxicam 7.5 MG tablet Take 1 tablet (7.5 mg total) by mouth daily. 01/06/19 Yes MAY Crawford PAST MEDICAL HISTORY: History reviewed. No pertinent past medical history. PAST SURGICAL HISTORY: History reviewed. No pertinent surgical history. FAMILY HISTORY: No family history on file. SOCIAL HISTORY: Social History Tobacco Use ??? Smoking status: Current Every Day Smoker ??? Smokeless tobacco: Never Used Substance Use Topics ??? Alcohol use: No Frequency: Never ??? Drug use: Not on file Review of Systems Review of Systems Constitutional: Negative for chills, fatigue and fever. HENT: Negative for congestion, ear pain, postnasal drip, rhinorrhea, sinus pressure, sinus pain andsore throat. Eyes: Negative for pain. Respiratory: Negative for cough, chest tightness, shortness of breath and wheezing. Cardiovascular: Negative for chest pain and palpitations. Gastrointestinal: Positive for nausea. Negative for abdominal pain, diarrhea and vomiting. Genitourinary: Negative for dysuria, flank pain, frequency and urgency. Musculoskeletal: Positive for back pain and myalgias. Negative for neck pain. Skin: Negative for rash. All other systems reviewed and are negative. Physical Exam Filed Vitals: 01/06/19 1030 BP: 139/90 Pulse: 84 Resp: 18 Temp: 97.5 ??F (36.4 ??C) TempSrc: Oral SpO2: 100% Weight: 93 kg (205 lb 0.4 oz) Height: 5' 2 (1.575 m) Physical Exam Constitutional: She is oriented to person, place, and time. She appears well- developed and well-nourished. HENT: Head: Normocephalic. Right Ear: External ear normal. Left Ear: External ear normal. Nose: Nose normal. Mouth/Throat: Oropharynx is clear and moist. Eyes: Conjunctivae and EOM are normal. Pupils are equal, round, and reactive to light. Neck: Normal range of motion. Neck supple. Cardiovascular: Normal rate, regular rhythm, normal heart sounds and intact distal pulses. Pulmonary/Chest: Effort normal and breath sounds normal. Abdominal: Soft. Bowel sounds are normal. Musculoskeletal: She exhibits tenderness. Lumbar back: She exhibits decreased range of motion, tenderness and pain. She exhibits no bony tenderness, no swelling and no spasm. Back: Neurological: She is alert and oriented to person, place, and time. Skin: Skin is warm and dry. Capillary refill takes less than 2 seconds. Psychiatric: She has a normal mood and affect. Her behavior is normal. Judgment and thought contentnormal. Nursing note and vitals reviewed. Diagnostic Studies / Procedures ELECTROCARDIOGRAMS: No results found for this visit on 01/06/19. LABORATORY STUDIES: Results for orders placed or performed during the hospital encounter of 01/06/19 TEST URINE Result Value Ref Range Specific [place] (U) 1.010 PREG TEST NEGATIVE NEGATIVE URINALYSIS, AUTO, COMPLETE Result Value Ref Range COLOR YELLOW TRANSPARENCY HAZY Specific [place] (U) 1.010 1.000 - 1.030 U PH 7.5 5.0 - 9.0 LEUKOCYTE ESTERASE NEGATIVE NEGATIVE NITRITES NEGATIVE NEGATIVE PROTEIN, URINE NEGATIVE NEGATIVE URINE GLUCOSE NEGATIVE NEGATIVE U KETONES NEGATIVE NEGATIVE Urine Bilirubin NEGATIVE NEGATIVE BLOOD 1+ (A) NEGATIVE WBC/HPF 0-5 0 - 5 /HPF RBC/HPF 0-5 0 - 5 /HPF EPI/HPF MODERATE /HPF IMAGING STUDIES XR ABD KUB Final Result by User, [id number] (01/06 112) IMAGING STUDIES: XR ABD KUB DATE: 01/06/2019 11:09 AM COMPARISON STUDIES: 07/30/2016 CLINICAL HISTORY: ? kidney stone . Right-sided low back pain IMPRESSION: 1. Grossly normal gas pattern without obstruction. No intra-abdominal mass. 2. No distinct calculi overlying the kidneys. No distinct calcifications along the course of the right ureter. 2 hemipelvic phleboliths are similar to prior exam.. 3. IUD in place. Minor degenerative change in lower lumbar spine. Prior calcification in region of distal left ureter is no longer present. 4. If symptoms persist follow-up with CT exam.. Interpreted By: Tomasa Corbett, 01/06/2019 11:24 AM ED Course / Medical Decision Making MDM Number of Diagnoses or Management Options Low back strain: Amount and/or Complexity of Data Reviewed Clinical lab tests: ordered and reviewed Tests in the radiology section of CPT??: ordered and reviewed Patient Progress Patient progress: stable ED Course as of Jan 07 1212FriJan 06, 2019 1030 Normal room air sat 100% [MS] 1211 Lab and x-ray results, medication, plan of care and follow-up discussed with patient. Patient verbalizes understanding of discharge instructions. [MS] 1211 XR ABD KUB [MS] 1212 Grossly normal gas pattern without obstruction. No intra-abdominal mass. ? 2. ??No distinct calculi overlying the kidneys. No distinct calcifications along the course of the right ureter. 2 hemipelvic phleboliths are similar to prior exam.. ?? 3. ??IUD in place. Minor degenerative change in lower lumbar spine. Prior calcification in region of distal left ureter is no longer present. ?? 4. ??If symptoms persist follow-up with CT exam.. ? [MS] ED Course User Index [MS] MAY Crawford Clinical Impression Low back strain (Primary) Disposition: Discharge MAY Crawford 01/06/19 1212 Cosigned by Rere Springer MD at 01/07/2019 9:49 PM CDT * Idania Benedict RN - 01/06/2019 10:32 AM CDT Came top ED for c/o right low back pain that started last night while bowling. documented in this encounter Plan of Treatment Not on file documented as of this encounter Procedures Procedure Name Priority Date/Time Associated Diagnosis Comments XR ABD KUB STAT 01/06/2019 11:18 AM CDT TEST URINE STAT 01/06/2019 10:50 AM CDT URINALYSIS, AUTO, COMPLETE STAT 01/06/2019 10:50 AM CDT documented in this encounter Results * XR ABD KUB (01/06/2019 11:18 AM CDT) Anatomical Region Laterality Modality Abdomen Radiographic Tammy ging 01/06/2019 11:2 4 AM CDT Impressions 01/06/2019 11:27 AM CDT IMPRESSION: 1. ??Grossly normal gas pattern without obstruction. No intra-abdominal mass. ? 2. ??No distinct calculi overlying the kidneys. No distinct calcifications along the course of the right ureter. 2 hemipelvic phleboliths are similar to prior exam.. 3. ??IUD in place. Minor degenerative change in lower lumbar spine. Prior calcification in region of distal left ureter is no longer present. 4. ??If symptoms persist follow-up with CT exam.. ? Interpreted By: Tomasa Corbett, 01/06/2019 11:24 AM Narrative 01/06/2019 11:27 AM CDT IMAGING STUDIES: ??XR ABD KUB ? DATE: ??01/06/2019 11:09 AM COMPARISON STUDIES: ??07/30/2016 CLINICAL HISTORY: ??? kidney stone ?? . ??Right-sided low back pain Procedure Note Richard Corbett MD - 01/06/2019 IMAGING STUDIES: XR ABD KUB DATE: 01/06/2019 11:09 AM COMPARISON STUDIES: 07/30/2016 CLINICAL HISTORY: ? kidney stone . Right-sided low back pain IMPRESSION: 1. Grossly normal gas pattern without obstruction. No intra-abdominal mass. 2. No distinct calculi overlying the kidneys. No distinctcalcifications along the course of the right ureter. 2 hemipelvic phleboliths aresimilar to prior exam.. 3. IUD in place. Minor degenerative change in lower lumbar spine. Prior calcification in region of distal left ureter is no longer present. 4. If symptoms persist follow-up with CT exam.. Interpreted By: Tomasa Corbett, 01/06/2019 11:24 AM Luz Shelby Yao [facility] Final Res ult * (ABNORMAL) URINALYSIS, AUTO, COMPLETE (01/06/2019 10:50 AM CDT) COLOR (U) YELLOW 01/06/2019 11:02 AM CDT [facility] TRANSPARENCY HAZY 01/06/2019 11:02 AM T [facility] SPECIFIC GRAVITY (U) 1.010 1.000 - 1.030 01/06/2019 11:02 AM T [facility] U PH 7.5 5.0 - 9.0 01/06/2019 11:02 AM [facility] LEUKOCYTES (U) NEGATIVE NEGATIVE 01/06/2019 11:02 AM [facility] NITRITES NEGATIVE NEGATIVE 01/06/2019 11:02 AM [facility] PROTEIN (U) NEGATIVE NEGATIVE 01/06/2019 11:02 AM [facility] URINE GLUCOSE NEGATIVE NEGATIVE 01/06/2019 11:02 AM [facility] KETONES MG/DL (U) NEGATIVE NEGATIVE 01/06/2019 11:02 AM [facility] BILIRUBIN (U) NEGATIVE NEGATIVE 01/06/2019 11:02 AM [facility] BLOOD (U) 1+(A) NEGATIVE 01/06/2019 11:02 AM [facility] WBC/HPF 0-5 0 - 5 /HPF 01/06/2019 11:02 AM CDT [facility] RBC/HPF 0-5 0 - 5 /HPF 01/06/2019 11:02 AM CDT [facility] EPI/HPF MODERATE /HPF 01/06/2019 11:02 AM CDT [facility] URINE SPECIMEN OBTAINED BY CLEAN CATCH PROCEDURE / Unknown 01/06/2019 10:50 AM CDT Luz Yao [facility] URINE ORDERABLES Final Re sult Performing Organization Address [facility]/ZIP Co de Phone Number [facility] [address] [place] [address], [place] [phone] * TEST URINE (01/06/2019 10:50 AM CDT) SPECIFIC GRAVITY (U) 1.010 01/06/2019 10:58 AM CDT [facility] PREG TEST NEGATIVE NEGATIVE 01/06/2019 10:58 AM CDT [facility] URINE SPECIMEN OBTAINED BY CLEAN CATCH PROCEDURE / Unknown 01/06/2019 10:50 AM CDT Luz Yao [facility] URINE ORDERABLES Final Re sult Performing Organization Address City/[facility]/ZIP Co de Phone Number [facility] [address] [place] [address], [place] [phone] documented in this encounter Visit Diagnoses Diagnosis Low back strain- Primary Sprain of lumbar region documented in this encounter Administered Medications Inactive Administered Medications - up to 3 most recent administrations Medication Order MAR Action Action Date Dose Rate Site ketorolac (TORADOL) injection 30 mg 30 mg, Intramuscular, Once, 1 dose, On Fri01/06/19 at 1115, For IV administration, give over 15 seconds. Given 01/06/2019 11:07 AM CDT 30 mg Right Deltoid documented in this encounter Active and Recently Administered Medications Times are shown in CDT. Scheduled Medication Order 01/04/2019 01/05/2019 01/06/2019 ketorolac (TORADOL) injection 30 mg (COMPLETED) 30 mg, Intramuscular, Once, 1 dose, On Fri01/06/19 at 1115, For IV administration, give over 15 seconds. 1107 (Given - Provid er: Jillian Neff RN) documented in this encounter Care Teams Algology Teacher Relationship Specialty Start Date End Date None, Provider, MD PCP - General 01/06/19 documented as of this encounter
--- OUTSIDE RECORDS SUMMARY | 2024-05-15 14:22 | XMS_ITS | Encounter Summary ---
Author Organization [facility] Address [address] [place] [address]. [place] [address] [place] [address] Care Team Providers Care Manager Inventory Control Name Role Phone Unavailable Primary Care Provider Unavailabl e Encounter Details Date Type Department Care Team (Late st Contact Info) Description 03/08/2017 Scan [place] [address] , Generic Conversion, Social History Tobacco Use Types Packs/Day Years [...]
--- OUTSIDE RECORDS SUMMARY | 2024-05-15 14:22 | XMS_ITS | Clinical Summary ---
Author Organization [facility] Address [address] [place] [address]. [place] [address] [place] [address] Care Team Providers Care Acid Strength Inspector Name Role Phone None, Provider MD Primary Care Provider Unavaila ble Allergies No known active allergies Medications meloxicam 7.5 MG tablet Take 1 tablet (7.5 mg total) by mouth daily. 30 tablet 01/06/2019 Active Social History Tobacco Use Types Packs/Day Years [...] on file Sexual Orientation Not on file Last Filed Vital Signs Vital Sign Reading [...] Mass Index 37.5 01/06/2019 10:30 AM CDT Plan of Treatment Health Maintenance Due Date Last Done Comments Cervical Cancer Screening Pa p Smear (Age 30 to 64) Every 3 Years 1982 Annual Physical 1985 Pneumococcal Vaccine: Pediat rics (0 to 5 Years) and At-Risk Patients (6 to 64 Years) (1 of 2 - PCV) 1988 Hepatitis C 2000 DTaP, Tdap and Td Vaccines ( 1 - Tdap) 2001 Hepatitis B Vaccines (1 of 3 - 19+ 3-dose series) 2001 Cervical Cancer Screening Pa p with HPV Testing (Age 30 to 64) Every 5 Years 2012 Cervical Cancer Screening with HPV 2012 Mammogram Screening 2022 COVID-19 Vaccine ( - 2023-2 5 season) 2024 Influenza Adult (#1) 2024 HPV Vaccines Aged Out No longer eligi ble based on patient's age to complete this topic Meningococcal Vaccine Aged Out No maia blessing eligible based on patient's age to complete this topic RSV Immunizations Under 20 Months Aged Out No longer eligible based on patient's age to complete this topic [place] [address] [place] [address] Care Teams Acid Strength Inspector Relationship Specialty Start Date End Date None, Provider, PCP - General 01/06/19
--- OUTSIDE RECORDS SUMMARY | 2024-05-15 14:22 | XMS_ITS | Encounter Summary ---
Author Organization [facility] Address [address] [place] [address]. [place] [address] [place] [address] Care Team Providers Care Milling Operator Name Role Phone Unavailable Primary Care Provider Unavailabl e Encounter Details Date Type Department Care Team (Late st Contact Info) Description 07/30/2016 Abstract [facility] Emergency Room [address] [place] [address] Andre Edmonds MD [address] [id number] Social History Tobacco Use Types Packs/Day Years [...]
--- OUTSIDE RECORDS SUMMARY | 2024-05-15 14:23 | XMS_ITS | Encounter Summary ---
Author Organization [facility] Address [address] [place] [address]. [place] [address] [place] [address] Care Team Providers Care Fiber Glass Worker Name Role Phone Unavailable Primary Care Provider Unavailabl e Encounter Details Date Type Department Care Team (Late st Contact Info) Description 12/29/[address] [facility] [address] [place] [address] Dylan Staton MD Social History Tobacco Use Types Packs/Day Years [...]
--- OUTSIDE RECORDS SUMMARY | 2024-05-15 14:23 | XMS_ITS | Encounter Summary ---
Author Organization [facility] Address [address] [place] [address]. [place] [address] [place] [address] Care Team Providers Care Captain Waiter/Waitress Name Role Phone Unavailable Primary Care Provider Unavailabl e Encounter Details Date Type Department Care Team (Late st Contact Info) Description 12/28/2015 Abstract [facility] Emergency Room [address] [place] [address] Tu Martinez MD [address] [address] Social History Tobacco Use Types Packs/Day Years Used Date Smoking Tobacco: Never Assessed Comments Unknown Sex and Gender Information Value Date Recorded Sex Assigned at Not on file Legal Sex Female 7:05 PM CDT Gender Identity Not on file Sexual Orientation Not on file documented as of this encounter Plan of Treatment Not on file documented as of this encounter Visit Diagnoses Diagnosis Calculus of kidney documented in this encounter
--- OUTSIDE RECORDS SUMMARY | 2024-05-15 14:23 | XMS_ITS | Encounter Summary ---
Author Organization [facility] Address [address] [place] [address]. [place] [address] [place] [address] Care Team Providers Care Back Tacker Name Role Phone Unavailable Primary Care Provider Unavailabl e Encounter Details Date Type Department Care Team (Late st Contact Info) Description 07/22/2012 [facility] Emergency Room [address] [place], [place] [id number] Vishnu Farias MD [place] [address] [place] [address] Social History Tobacco Use Types Packs/Day Years Used Date Smoking Tobacco: Never Assessed Comments Unknown Sex and Gender Information Value Date Recorded Sex Assigned at Not on file Legal Sex Female 7:05 PM CDT Gender Identity Not on file Sexual Orientation Not on file documented as of this encounter Plan of Treatment Not on file documented as of this encounter Visit Diagnoses Diagnosis Disorder of teeth and supporting structures Unspecified disorder of the teeth and supporting structures documented in this encounter
--- OUTSIDE RECORDS SUMMARY | 2024-05-15 14:23 | XMS_ITS | Encounter Summary ---
Author Organization [facility] Address [address] [place] [address]. [place] [address] [place] [address] Care Team Providers Care Mixing Operator Name Role Phone Unavailable Primary Care Provider Unavailabl e Encounter Details Date Type Department Care Team (Late st Contact Info) Description 10/19/2013 Abstract [facility] Family & Internal Medicine [facility] [address] [place] [address] Say Shipman MD [address] [place] [address] Social History Tobacco Use Types Packs/Day Years [...]
--- OUTSIDE RECORDS SUMMARY | 2024-05-15 14:23 | XMS_ITS | Encounter Summary ---
Author Organization [facility] Address [address] [place] [address]. [place] [address] [place] [address] Care Team Providers Care Rose Grader Name Role Phone Unavailable Primary Care Provider Unavailabl e Encounter Details Date Type Department Care Team (Late st Contact Info) Description 10/21/2013 Abstract [facility] [address] [place] [address] Social History Tobacco Use Types Packs/Day Years [...]
--- OUTSIDE RECORDS SUMMARY | 2024-05-15 14:23 | XMS_ITS | Encounter Summary ---
Author Organization [facility] Address [address] [place] [address]. [place] [address] [place] [address] Care Team Providers Care House Manager Name Role Phone Unavailable Primary Care Provider Unavailabl e Encounter Details Date Type Department Care Team (Late st Contact Info) Description 09/18/2010 Abstract [facility] Emergency Room [address] [place], [place] [id number] Joseph Calloway MD Social History Tobacco Use Types Packs/Day [...] as of this encounter Visit Diagnoses Diagnosis Constipation Unspecified constipation documented in this encounter
--- OUTSIDE RECORDS SUMMARY | 2024-05-15 14:23 | XMS_ITS | Encounter Summary ---
Author Organization [facility] Address [address] [place] [address]. [place] [address] [place] [address] Care Team Providers Care Cable Television Line Technician Name Role Phone Unavailable Primary Care Provider Unavailabl e Encounter Details Date Type Department Care Team (Late st Contact Info) Description 09/02/2012 Abstract [facility] Emergency Room [address] [place] [address] Danny Seals MD [address] [place] [address] Social History Tobacco Use Types Packs/Day Years Used Date Smoking Tobacco: Never Assessed Comments Unknown Sex and Gender Information Value Date Recorded Sex Assigned at Not on file Legal Sex Female 7:05 PM CDT Gender Identity Not on file Sexual Orientation Not on file documented as of this encounter Plan of Treatment Not on file documented as of this encounter Visit Diagnoses Diagnosis Acute tonsillitis documented in this encounter
--- OUTSIDE RECORDS SUMMARY | 2024-05-15 14:23 | XMS_ITS | Encounter Summary ---
Author Organization [facility] Address [address] [place] [address]. [place] [address] [place] [address] Care Team Providers Care Outreach Specialist Name Role Phone Unavailable Primary Care Provider Unavailabl e Encounter Details Date Type Department Care Team (Late st Contact Info) Description 02/09/2014 Abstract [facility] Emergency Room [address] [place] [address] Aura Diggs, SWITCHBOARD WIRER [address] [address] Social History Tobacco Use Types Packs/Day Years Used Date Smoking Tobacco: Never Assessed Comments Unknown Sex and Gender Information Value Date Recorded Sex Assigned at Not on file Legal Sex Female 7:05 PM CDT Gender Identity Not on file Sexual Orientation Not on file documented as of this encounter Plan of Treatment Not on file documented as of this encounter Visit Diagnoses Diagnosis Chronic sinusitis Unspecified sinusitis (chronic) documented in this encounter
--- OUTSIDE RECORDS SUMMARY | 2024-05-15 14:23 | XMS_ITS | Encounter Summary ---
Author Organization [facility] Address [address] [place] [address]. [place] [address] [place] [address] Care Team Providers Care Parking Meter Mechanic Name Role Phone Unavailable Primary Care Provider Unavailabl e Encounter Details Date Type Department Care Team (Latest Contact Info) Description 10/04/2013 Abstract [facility] Medical Group Social History Tobacco Use Types [...]
== END 2024-05-08 11:05 | disposition home or self-care (01) ==
PROVIDERS: Emergency Provider Nurse Practitioner Family; PCP Nurse Practitioner Family
DX: J40 Bronchitis, not specified as acute or chronic (principal); F17.210 Nicotine dependence, cigarettes, uncomplicated; E66.9 Obesity, unspecified; Z68.38 Body mass index [BMI] 38.0-38.9, adult
CPT/HCPCS: 99213; G0463